=== PATIENT | male | born 1995 | race Caucasian/White ===

== ENCOUNTER 2017-07-19 01:14 | Emergency (ER) | payer OTHER ==
[~2017-07-19] VITALS: Ht 170.2 cm; Wt 66.7 kg
[2017-07-19 01:16] VITALS: TEMP 36.6; Ht 170.2 cm; Wt 66.7 kg
[2017-07-19] MEDS ORDERED: IBUPROFEN 600 MG TAB PO STA (01:56)
[2017-07-19] MEDS ORDERED: ACETAMINOPHEN 500 MG TAB PO STA (01:56)
[2017-07-19] MEDS ORDERED: AMOX500C3 PO (01:58)
[2017-07-19] MEDS ORDERED: AMOXICILLIN 250 MG CAP PO ONE (02:00)
[2017-07-19 02:18] VITALS: BP 108/77; PULSE 92; O2SAT 97
--- NOTE | 2017-07-19 04:45 | EMERGENCY ROOM VISIT NOTE ---
ED Visit Note First contact with patient: 01:20 CHIEF COMPLAINT: Sore throat HISTORY OF PRESENT ILLNESS: This 22-year-old male patient presents to the emergency department complaining of increasing pain in the throat, gradual in onset, worse with swallowing. The patient states his symptoms began while laying in bed tonight. He became worried about his breathing and was very anxious about this. The patient has not had a fever. No rash. Denies any posterior neck pain or stiffness. No difficulty breathing. Symptoms came on gradually. There has been no chest pain, no abdominal pain, no nausea or vomiting. Patient denies any cough, rhinorrhea, congestion, or ear pain. REVIEW OF SYSTEMS: A 6 system review of systems was completed with pertinent positives and negatives in the HPI. ALLERGIES: No known allergies MEDICATIONS: No chronic medication PMH: Otherwise healthy SOCIAL HISTORY: Student who lives locally PHYSICAL EXAM: Vital Signs: Reviewed Nurse's notes. MENTAL STATUS: Alert and oriented to person place and time. THROAT: The pharynx is inflamed and slightly swollen. The tonsils are enlarged and erythematous without exudates seen on the tonsils. The oropharyngeal airway is patent. Uvula is midline and no abscess is seen. NECK: Supple. Positive anterior cervical lymph nodes are enlarged and tender. There is no posterior cervical or auricular lymphadenopathy. No nuchal rigidity. HEART: Regular rate and rhythm without murmur gallop or rub LUNG: Clear to auscultation bilateral SKIN: Clear and dry, no eruptions, or rashes. No cyanosis, no petechiae. ED COURSE: I examined the patient. A rapid strep test was positive. The patient was instructed on the plan below and was discharged home in good condition. Current/Historical Medications Scheduled Amoxicillin (Amoxil), 500 MG PO TID Vital Signs Date Time Temp Pulse Resp B/P (MAP) Pulse Ox O2 Delivery O2 Flow Rate FiO2 07/19/17 02:18 92 20 108/77 97 07/19/17 01:16 36.6 87 20 119/77 97 Room Air Laboratory Results Date/Time Source Procedure Growth Status 07/19/17 01:42 Throat Group A Streptococcus Screen - Final SPECIMEN POSITIVE FOR GROUP A BETA ST... Complete 07/19/17 01:42 Throat Group A Streptococcus Screen (ELDER) - Final Complete Medications Administered Medications (Trade) Dose Ordered Sig/Eri Route Start Time Stop Time Status Last Admin Dose Admin Amoxicillin (Amoxil Cap) 500 mg NOW ONCE PO 07/19/17 02:00 07/19/17 02:01 DC 07/19/17 02:11 500 MG Acetaminophen (Tylenol Tab) 1,000 mg NOW STAT PO 07/19/17 01:56 07/19/17 01:58 DC 07/19/17 02:11 1,000 MG Ibuprofen (Motrin Tab) 600 mg NOW STAT PO 07/19/17 01:56 07/19/17 01:58 DC 07/19/17 02:11 600 MG Departure Information Impression Primary Impression: Strep pharyngitis Dispostion Home / Self-Care Condition GOOD Prescriptions Amoxicillin (AMOXIL) 500 Mg Cap 500 MG PO TID for 10 Days, #30 CAP Prov: Shine Ibarra PA-C 07/19/17 Referrals Ray Barker M.D. Forms HOME CARE DOCUMENTATION FORM, IMPORTANT VISIT INFORMATION Patient Instructions My [facility] Additional Instructions You were seen and evaluated today on an emergency basis only. This is not a substitute for, or an effort to provide, complete comprehensive medical care. It is not possible to recognize and treat all injuries or illnesses in a single emergency department visit. For this reason it is recommended that you followup with your primary care physician or S with any ongoing or persisting symptoms. Take amoxicillin 500 mg 3 times daily for the next 10 days. For baseline pain relief you may alternate ibuprofen and acetaminophen every 4 hours for pain control. Take 600 mg ibuprofen (Advil) and then 4 hours later take 1000 mg acetaminophen (Tylenol). Do not take more than 3000 mg acetaminophen in a single day. You may also wish to follow with ear nose and throat, Dr. Barker's office, due to the recurrent nature of your infection. Call to make an appointment. You are welcome to return to the emergency department anytime with new, worsening, or concerning symptoms.
== END 2017-07-19 02:19 | disposition home or self-care (01) ==
LOC: C.EDB 01:15 → C.EDA 02:19
DX: J02.0 Streptococcal pharyngitis (principal)